=== PATIENT | male | born 1965 | race Caucasian/White ===

== ENCOUNTER 2017-07-18 17:47 | Emergency (ER) | payer OTHER ==
[~2017-07-18] VITALS: Ht 177.8 cm; Wt 83.9 kg
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
[2017-07-18] MEDS ORDERED: NORCO 5-325 TA1 EACH PO (20:22)
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
[2017-07-18 20:53] VITALS: BP 115/67
== END 2017-07-18 20:47 ==
LOC: ERH 17:47
DX: S42.102A Fracture of unspecified part of scapula, left shoulder, initial encounter for closed fracture (principal); S22.32XA Fracture of one rib, left side, initial encounter for closed fracture; V28.0XXA Motorcycle driver injured in noncollision transport accident in nontraffic accident, initial encounter; Y92.9 Unspecified place or not applicable
CPT/HCPCS: 73030-LT; 96372; J1885